=== PATIENT | male | born 1950 | race Asian ===

== ENCOUNTER 2017-12-21 22:09 | Inpatient (IN) | payer MEDICARE, OTHER ==
[2017-12-21] MEDS: SODIUM CHLORIDE 0.9% 1L BAG IV* (22:41)
[2017-12-21 22:50] LABS: ABNORMAL IP MESSAGE 1; HEMATOCRIT 18.3 % (42.0-52.0); MEAN CORPUSCULAR HEMOGLOBIN 30.8 pg (29.0-33.0); MEAN PLATELET VOLUME 11.5 fl (7.4-10.4); POSITIVE DIFF @See below; RED BLOOD COUNT 2.08 10^6/ul (4.70-6.10); RED CELL DISTRIBUTION WIDTH 16.1 % (11.5-14.5)
[2017-12-21 22:55] LABS: HEMOGLOBIN 6.4 g/dl (14.0-18.0); PLATELET COUNT 17 10^3/UL (140-415)
[2017-12-21 22:56] LABS: ADD MAN DIFF? YES; ALANINE AMINOTRANSFERASE 27 IU/L (13-69); ALBUMIN/GLOBULIN RATIO 1.03; ALKALINE PHOSPHATASE 70 IU/L (42-121); ANION GAP 15 (8-16); ASPARTATE AMINO TRANSFERASE 31 IU/L (15-46); BILIRUBIN,INDIRECT 0.7 mg/dl (0-1.1); BILIRUBIN,TOTAL 0.7 mg/dl (0.2-1.3); BLOOD UREA NITROGEN 20 mg/dl (7-20); CALCIUM 7.9 mg/dl (8.4-10.2); CARBON DIOXIDE 29 mmol/L (21-31); CHLORIDE 88 mmol/L (97-110); CREATININE 0.72 mg/dl (0.61-1.24); GLUCOSE 76 mg/dl (70-220); PATH REVIEW? YES; POTASSIUM 3.8 mmol/L (3.5-5.1); SODIUM 128 mmol/L (135-144); TOTAL PROTEIN 5.9 g/dl (6.1-8.1)
[2017-12-21 23:12] LABS: TROPONIN-I < 0.012 ng/ml (0.00-0.12)
[2017-12-21 23:26] LABS: INR 1.03; PROTIME 13.6 Sec (11.9-14.9); PT RATIO 1.1
[2017-12-21 23:27] LABS: PARTIAL THROMBOPLASTIN TIME 37.8 Sec (25.0-35.0)
[2017-12-21 23:43] LABS: ANISOCYTOSIS 2+ (0-0); BAND NEUTROPHILS #M 0.2 10^3/ul (0.0-0.6); BAND NEUTROPHILS % (M) 11 % (0-4); LYMPHOCYTES % (M) 52 % (15-51); MICROCYTOSIS 2+ (0-0); MONOCYTE #M 0.1 10^3/ul (0.3-0.9); MONOCYTES % (M) 6 % (0-11); PLATELET ESTIMATE SIG DECREASED; POLYCHROMASIA 3+ (0-0); SEG NEUT #M 0.6 10^3/ul (1.6-7.5); SEGMENTED NEUTROPHILS (M) % 31 % (39-77); SMUDGE%M 22 % (0-0)
[2017-12-21 23:50] LABS: LACTIC ACID 2.8 mmol/L (0.5-2.0)
[2017-12-22] MEDS: CEFEPIME 2GM/50 ML (PMX) 50 ML IVPB (00:40)
[2017-12-22] MEDS: VANCOMYCIN 1 GM (PMX) 250 ML IVPB (03:03)
[2017-12-22] MEDS ORDERED: NACL 0.9% 3 ML SYG IV (03:30)
[2017-12-22] MEDS ORDERED: ONDANSETRON 4 MG INJ IV (03:30)
[2017-12-22] MEDS ORDERED: ACETAMINOPHEN 650 MG SUPP PR (03:30)
[2017-12-22 06:31] LABS: WHITE BLOOD COUNT 1.1 10^3/ul (4.8-10.8)
[2017-12-22 06:31] LABS: ABNORMAL IP MESSAGE 1; HEMATOCRIT 18.3 % (42.0-52.0); MEAN CORPUSCULAR HEMOGLOBIN 30.4 pg (29.0-33.0); MEAN CORPUSCULAR HGB CONC 35.5 g/dl (32.0-37.0); MEAN CORPUSCULAR VOLUME 85.5 fl (82.0-101.0); MEAN PLATELET VOLUME 10.4 fl (7.4-10.4); POSITIVE DIFF @See below; RED BLOOD COUNT 2.14 10^6/ul (4.70-6.10); RED CELL DISTRIBUTION WIDTH 15.9 % (11.5-14.5)
[2017-12-22 06:33] LABS: PLATELET COUNT 27 10^3/UL (140-415)
[2017-12-22 06:36] LABS: HEMOGLOBIN 6.5 g/dl (14.0-18.0)
[2017-12-22 06:37] LABS: ADD MAN DIFF? YES
[2017-12-22] MEDS: PANTOPRAZOLE 40 MG INJ IV (06:49)
[2017-12-22 07:05] LABS: LACTIC ACID 0.8 mmol/L (0.5-2.0)
[2017-12-22 07:10] LABS: ALANINE AMINOTRANSFERASE 30 IU/L (13-69); ALBUMIN 2.5 g/dl (3.3-4.9); ALBUMIN/GLOBULIN RATIO 0.86; ALKALINE PHOSPHATASE 59 IU/L (42-121); ANION GAP 11 (8-16); ASPARTATE AMINO TRANSFERASE 31 IU/L (15-46); BILIRUBIN,INDIRECT 1.7 mg/dl (0-1.1); BILIRUBIN,TOTAL 1.7 mg/dl (0.2-1.3); BLOOD UREA NITROGEN 20 mg/dl (7-20); CALCIUM 7.4 mg/dl (8.4-10.2); CARBON DIOXIDE 26 mmol/L (21-31); CHLORIDE 96 mmol/L (97-110); CREATININE 0.58 mg/dl (0.61-1.24); GLUCOSE 65 mg/dl (70-220); MAGNESIUM 1.7 mg/dl (1.7-2.5); POTASSIUM 4.1 mmol/L (3.5-5.1); SODIUM 129 mmol/L (135-144); TOTAL PROTEIN 5.4 g/dl (6.1-8.1)
[2017-12-22] MEDS ORDERED: VANCOMYCIN IV PER PHARMACY XX (08:30)
[2017-12-22 09:46] LABS: ANISOCYTOSIS 2+ (0-0); BAND NEUTROPHILS % (M) 3 % (0-4); GIANT THROMBO% (M) 4 % (0-0); LYMPHOCYTES #M 0.3 10^3/ul (0.8-2.9); LYMPHOCYTES % (M) 33 % (15-51); MICROCYTOSIS 2+ (0-0); MONOCYTES % (M) 4 % (0-11); PLATELET ESTIMATE SIG DECREASED; SEG NEUT #M 0.7 10^3/ul (1.6-7.5); SEGMENTED NEUTROPHILS (M) % 60 % (39-77); SMUDGE%M 13 % (0-0)
[2017-12-22] MEDS: PIPER-TAZO 3.375 GM IV (PMX) 100 ML IVPB ×3 (10:24→18:00)
[2017-12-22 11:09] LABS: IMMEDIATE SPIN CROSSMATCH 1 3
[2017-12-22] MEDS: HYDROmorphONE 0.5 MG/0.5 ML SYG IV ×2 (15:36→20:38)
[2017-12-22 15:56] LABS: URIC ACID 3.3 mg/dl (3.1-7.9)
[2017-12-22] MEDS ORDERED: VANCOMYCIN 500MG/NS (PMX) 100 ML IVPB (16:00)
[2017-12-22 16:12] LABS: OSMOLALITY 271 mOsm/kg (280-295)
[2017-12-22 16:14] LABS: FREE T4 (FREE THYROXINE) 0.27 ng/dl (0.78-2.44)
[2017-12-22] MEDS: VANCOMYCIN 750 MG in DEXTROSE 5% 150 ML IVPB (17:56)
[2017-12-23] MEDS: PIPER-TAZO 3.375 GM IV (PMX) 100 ML IVPB ×5 (00:08→23:39)
[2017-12-23] MEDS: HYDROmorphONE 0.5 MG/0.5 ML SYG IV ×6 (00:10→21:16)
[2017-12-23] MEDS: HYDROCODONE/APAP (10/325) TAB GTB ×2 (02:49→06:49)
[2017-12-23] MEDS ORDERED: VANCOMYCIN 750 MG in DEXTROSE 5% 150 ML IVPB (03:00)
[2017-12-23] MEDS: VANCOMYCIN 750 MG in DEXTROSE 5% 150 ML IVPB ×2 (03:49→16:48)
[2017-12-23] MEDS: PANTOPRAZOLE 40 MG INJ IV (06:42)
[2017-12-23 07:56] LABS: WHITE BLOOD COUNT 1.1 10^3/ul (4.8-10.8)
[2017-12-23 07:56] LABS: ABNORMAL IP MESSAGE 1; HEMATOCRIT 29.5 % (42.0-52.0); HEMOGLOBIN 10.4 g/dl (14.0-18.0); MEAN CORPUSCULAR HEMOGLOBIN 29.9 pg (29.0-33.0); MEAN CORPUSCULAR HGB CONC 35.3 g/dl (32.0-37.0); MEAN CORPUSCULAR VOLUME 84.8 fl (82.0-101.0); MEAN PLATELET VOLUME 9.3 fl (7.4-10.4); PLATELET COUNT 57 10^3/UL (140-415); POSITIVE DIFF @See below; RED BLOOD COUNT 3.48 10^6/ul (4.70-6.10); RED CELL DISTRIBUTION WIDTH 14.9 % (11.5-14.5)
[2017-12-23 08:00] LABS: ADD MAN DIFF? YES
[2017-12-23 08:16] LABS: ANION GAP 12 (8-16); BLOOD UREA NITROGEN 18 mg/dl (7-20); CALCIUM 7.9 mg/dl (8.4-10.2); CARBON DIOXIDE 28 mmol/L (21-31); CHLORIDE 97 mmol/L (97-110); CREATININE 0.63 mg/dl (0.61-1.24); GLUCOSE 82 mg/dl (70-220); POTASSIUM 3.5 mmol/L (3.5-5.1); SODIUM 133 mmol/L (135-144)
[2017-12-23] MEDS ORDERED: oxyCODONE (20 MG/ML PO SYG) GTB (11:00)
[2017-12-23 12:18] LABS: ADD UMIC NO; UR ASCORBIC ACID NEGATIVE (NEGATIVE); UR BILIRUBIN (Dip) NEGATIVE (NEGATIVE); UR BLOOD (Dip) NEGATIVE (NEGATIVE); UR CLARITY CLEAR (CLEAR); UR COLOR YELLOW (YELLOW); UR GLUCOSE (Dip) NEGATIVE (NEGATIVE); UR KETONES (Dip) 1+ mg/dL (NEGATIVE); UR LEUKOCYTE ESTERASE (Dip) NEGATIVE Leu/ul (NEGATIVE); UR NITRITE (Dip) NEGATIVE (NEGATIVE); UR SPECIFIC GRAVITY (Dip) 1.016 (1.003-1.030); UR TOTAL PROTEIN (Dip) NEGATIVE (NEGATIVE); UR UROBILINOGEN (Dip) NEGATIVE (NEGATIVE)
[2017-12-23] MEDS: oxyCODONE 5 MG TAB PO ×2 (12:18→19:01)
[2017-12-23 12:25] LABS: SODIUM,URINE RANDOM 73 mmol/L (30-90)
[2017-12-23 12:25] LABS: CREATININE,URINE RANDOM 51.79 mg/dl (20-370)
[2017-12-23 12:57] LABS: ANISOCYTOSIS 1+ (0-0); BAND NEUTROPHILS % (M) 9 % (0-4); BASOPHILS % (M) 1 % (0-2); BURR CELLS 2+ (0-0); EOSINOPHILS % (M) 1 % (0-7); ERYTHROBLAST% (NRBC) (M) 1 % (0-0); GIANT THROMBO% (M) 1 % (0-0); LYMPHOCYTES #M 0.3 10^3/ul (0.8-2.9); LYMPHOCYTES % (M) 31 % (15-51); MICROCYTOSIS 1+ (0-0); MONOCYTES % (M) 9 % (0-11); PLATELET ESTIMATE SIG DECREASED; POIKILOCYTOSIS 2+ (0-0); POLYCHROMASIA 1+ (0-0); REACTIVE LYMPHOCYTES% (M) 2 % (0-0); SEG NEUT #M 0.5 10^3/ul (1.6-7.5); SEGMENTED NEUTROPHILS (M) % 47 % (39-77); SMUDGE%M 38 % (0-0)
[2017-12-23 13:20] LABS: OSMOLALITY,URINE 463 mOsm/kg (250-1200)
[2017-12-23 16:23] LABS: VANCOMYCIN,TROUGH 14.6 ug/ml (10.0-20.0)
[2017-12-24] MEDS: HYDROmorphONE 0.5 MG/0.5 ML SYG IV ×4 (02:53→18:57)
[2017-12-24] MEDS: VANCOMYCIN 750 MG in DEXTROSE 5% 150 ML IVPB ×2 (04:37→17:00)
[2017-12-24] MEDS: oxyCODONE 5 MG TAB PO ×5 (04:56→22:53)
[2017-12-24] MEDS: PANTOPRAZOLE 40 MG INJ IV (06:30)
[2017-12-24] MEDS: PIPER-TAZO 3.375 GM IV (PMX) 100 ML IVPB ×3 (06:31→18:56)
[2017-12-24 08:18] LABS: ABNORMAL IP MESSAGE 1; HEMATOCRIT 26.4 % (42.0-52.0); HEMOGLOBIN 9.3 g/dl (14.0-18.0); MEAN CORPUSCULAR HGB CONC 35.2 g/dl (32.0-37.0); MEAN CORPUSCULAR VOLUME 85.2 fl (82.0-101.0); MEAN PLATELET VOLUME 9.9 fl (7.4-10.4); POSITIVE DIFF @See below; RED CELL DISTRIBUTION WIDTH 15.3 % (11.5-14.5)
[2017-12-24 08:18] LABS: WHITE BLOOD COUNT 1.4 10^3/ul (4.8-10.8)
[2017-12-24 08:21] LABS: ADD MAN DIFF? YES; PLATELET COUNT 27 10^3/UL (140-415)
[2017-12-24 08:43] LABS: ANION GAP 9 (8-16); BLOOD UREA NITROGEN 14 mg/dl (7-20); CALCIUM 7.6 mg/dl (8.4-10.2); CARBON DIOXIDE 28 mmol/L (21-31); CHLORIDE 99 mmol/L (97-110); GLUCOSE 91 mg/dl (70-220); POTASSIUM 3.8 mmol/L (3.5-5.1); SODIUM 132 mmol/L (135-144)
[2017-12-24 09:22] LABS: ANISOCYTOSIS 2+ (0-0); BAND NEUTROPHILS #M 0.1 10^3/ul (0.0-0.6); BAND NEUTROPHILS % (M) 10 % (0-4); BASOPHILS % (M) 1 % (0-2); ERYTHROBLAST% (NRBC) (M) 2 % (0-0); GIANT THROMBO% (M) 5 % (0-0); LYMPHOCYTES #M 0.4 10^3/ul (0.8-2.9); LYMPHOCYTES % (M) 34 % (15-51); MICROCYTOSIS 1+ (0-0); MONOCYTES % (M) 6 % (0-11); PLATELET ESTIMATE SIG DECREASED; POLYCHROMASIA 2+ (0-0); REACTIVE LYMPHOCYTES% (M) 2 % (0-0); SEG NEUT #M 0.6 10^3/ul (1.6-7.5); SEGMENTED NEUTROPHILS (M) % 46 % (39-77); SMUDGE%M 11 % (0-0)
[2017-12-24] MEDS: LEVOTHYROXINE 50 MCG TAB PO (09:30)
[2017-12-24 17:26] LABS: CREATININE, RANDOM URINE 61 mg/dL (20-370); MICROALBUMIN <0.2 mg/dL; MICROALBUMIN/CREATININE RATIO NOTE (<30)
[2017-12-24 17:51] LABS: TYPE AND SCREEN 1
[2017-12-24] MEDS: SOD CHLORIDE 0.9% 250 ML IV* (18:15)
[2017-12-25] MEDS: PIPER-TAZO 3.375 GM IV (PMX) 100 ML IVPB ×4 (00:08→18:38)
[2017-12-25] MEDS: HYDROmorphONE 0.5 MG/0.5 ML SYG IV ×3 (02:52→16:09)
[2017-12-25] MEDS: VANCOMYCIN 750 MG in DEXTROSE 5% 150 ML IVPB ×2 (04:30→16:17)
[2017-12-25] MEDS: PANTOPRAZOLE 40 MG INJ IV (05:32)
[2017-12-25] MEDS: LEVOTHYROXINE 50 MCG TAB PO (05:32)
[2017-12-25] MEDS: oxyCODONE 5 MG TAB PO ×4 (06:47→23:28)
[2017-12-25 08:08] LABS: ABNORMAL IP MESSAGE 1; HEMATOCRIT 29.5 % (42.0-52.0); HEMOGLOBIN 10.2 g/dl (14.0-18.0); MEAN CORPUSCULAR HEMOGLOBIN 29.8 pg (29.0-33.0); MEAN CORPUSCULAR HGB CONC 34.6 g/dl (32.0-37.0); MEAN CORPUSCULAR VOLUME 86.3 fl (82.0-101.0); MEAN PLATELET VOLUME 10.5 fl (7.4-10.4); POSITIVE DIFF @See below; RED BLOOD COUNT 3.42 10^6/ul (4.70-6.10); RED CELL DISTRIBUTION WIDTH 14.9 % (11.5-14.5)
[2017-12-25 08:08] LABS: WHITE BLOOD COUNT 1.2 10^3/ul (4.8-10.8)
[2017-12-25 08:11] LABS: ADD MAN DIFF? YES; PLATELET COUNT 43 10^3/UL (140-415)
[2017-12-25 08:28] LABS: ANION GAP 9 (8-16); BLOOD UREA NITROGEN 11 mg/dl (7-20); CARBON DIOXIDE 33 mmol/L (21-31); CHLORIDE 95 mmol/L (97-110); CREATININE 0.52 mg/dl (0.61-1.24); GLUCOSE 91 mg/dl (70-220); POTASSIUM 3.4 mmol/L (3.5-5.1); SODIUM 134 mmol/L (135-144)
[2017-12-25] MEDS: POTASSIUM CHLORIDE 20 MEQ POWDER FOR ORAL SOLN GTB (09:20)
[2017-12-25 10:24] LABS: ANISOCYTOSIS 1+ (0-0); BAND NEUTROPHILS % (M) 8 % (0-4); EOSINOPHILS % (M) 1 % (0-7); LYMPHOCYTES #M 0.4 10^3/ul (0.8-2.9); LYMPHOCYTES % (M) 39 % (15-51); MICROCYTOSIS 1+ (0-0); MONOCYTE #M 0.1 10^3/ul (0.3-0.9); MONOCYTES % (M) 10 % (0-11); PLATELET ESTIMATE SIG DECREASED; REACTIVE LYMPHOCYTES% (M) 2 % (0-0); SEG NEUT #M 0.5 10^3/ul (1.6-7.5); SEGMENTED NEUTROPHILS (M) % 40 % (39-77); SMUDGE%M 38 % (0-0)
[2017-12-25] MEDS: SOD CHLORIDE 0.9% 250 ML IV* (13:03)
[2017-12-25 22:27] LABS: ABNORMAL IP MESSAGE 1; HEMATOCRIT 22.2 % (42.0-52.0); HEMOGLOBIN 7.8 g/dl (14.0-18.0); MEAN CORPUSCULAR HEMOGLOBIN 30.7 pg (29.0-33.0); MEAN CORPUSCULAR HGB CONC 35.1 g/dl (32.0-37.0); MEAN CORPUSCULAR VOLUME 87.4 fl (82.0-101.0); MEAN PLATELET VOLUME 10.9 fl (7.4-10.4); POSITIVE DIFF @See below; RED BLOOD COUNT 2.54 10^6/ul (4.70-6.10); RED CELL DISTRIBUTION WIDTH 14.4 % (11.5-14.5)
[2017-12-25 22:27] LABS: WHITE BLOOD COUNT 2.7 10^3/ul (4.8-10.8)
[2017-12-25 22:33] LABS: ADD MAN DIFF? YES; PLATELET COUNT 29 10^3/UL (140-415)
[2017-12-25 22:44] LABS: INR 0.98; PROTIME 13.1 Sec (11.9-14.9)
[2017-12-25 23:06] LABS: ANISOCYTOSIS 1+ (0-0); BAND NEUTROPHILS #M 0.2 10^3/ul (0.0-0.6); BAND NEUTROPHILS % (M) 9 % (0-4); EOSINOPHILS % (M) 1 % (0-7); LYMPHOCYTES #M 1.7 10^3/ul (0.8-2.9); LYMPHOCYTES % (M) 63 % (15-51); MICROCYTOSIS 1+ (0-0); MONOCYTES % (M) 2 % (0-11); PLATELET ESTIMATE SIG DECREASED; SEG NEUT #M 0.7 10^3/ul (1.6-7.5); SEGMENTED NEUTROPHILS (M) % 25 % (39-77); SMUDGE%M 14 % (0-0)
[2017-12-26] MEDS ORDERED: PHENYLephrine 40 MG in DEXTROSE 5% 496 ML IV
[2017-12-26] MEDS: PIPER-TAZO 3.375 GM IV (PMX) 100 ML IVPB ×4 (00:08→18:26)
[2017-12-26] MEDS: NORepinephrine 8MG/250 ML (PMX 250 ML IV (01:43)
[2017-12-26 03:36] LABS: IMMEDIATE SPIN CROSSMATCH 1 4
[2017-12-26] MEDS: VANCOMYCIN 750 MG in DEXTROSE 5% 150 ML IVPB ×2 (03:46→17:06)
[2017-12-26 05:51] LABS: ABNORMAL IP MESSAGE 1; HEMOGLOBIN 8.3 g/dl (14.0-18.0); MEAN CORPUSCULAR HEMOGLOBIN 28.9 pg (29.0-33.0); MEAN CORPUSCULAR HGB CONC 34.6 g/dl (32.0-37.0); MEAN CORPUSCULAR VOLUME 83.6 fl (82.0-101.0); MEAN PLATELET VOLUME 10.6 fl (7.4-10.4); PLATELET COUNT 60 10^3/UL (140-415); POSITIVE DIFF @See below; RED BLOOD COUNT 2.87 10^6/ul (4.70-6.10); RED CELL DISTRIBUTION WIDTH 13.6 % (11.5-14.5)
[2017-12-26 05:51] LABS: WHITE BLOOD COUNT 1.8 10^3/ul (4.8-10.8)
[2017-12-26 06:13] LABS: ANION GAP 11 (8-16)
[2017-12-26 06:14] LABS: ADD MAN DIFF? YES
[2017-12-26 06:17] LABS: BLOOD UREA NITROGEN 15 mg/dl (7-20); CALCIUM 7.4 mg/dl (8.4-10.2); CARBON DIOXIDE 29 mmol/L (21-31); CHLORIDE 98 mmol/L (97-110); CREATININE 0.56 mg/dl (0.61-1.24); GLUCOSE 106 mg/dl (70-220); POTASSIUM 4.3 mmol/L (3.5-5.1); SODIUM 134 mmol/L (135-144)
[2017-12-26] MEDS: PANTOPRAZOLE 40 MG INJ IV (06:30)
[2017-12-26] MEDS: LEVOTHYROXINE 50 MCG TAB PO (06:31)
[2017-12-26 07:56] LABS: ANISOCYTOSIS 2+ (0-0); BAND NEUTROPHILS #M 0.3 10^3/ul (0.0-0.6); BAND NEUTROPHILS % (M) 18 % (0-4); GIANT THROMBO% (M) 3 % (0-0); LYMPHOCYTES #M 0.7 10^3/ul (0.8-2.9); LYMPHOCYTES % (M) 41 % (15-51); MICROCYTOSIS 2+ (0-0); MONOCYTES % (M) 2 % (0-11); PLATELET ESTIMATE SIG DECREASED; SEG NEUT #M 0.7 10^3/ul (1.6-7.5); SEGMENTED NEUTROPHILS (M) % 39 % (39-77); SMUDGE%M 9 % (0-0)
[2017-12-26] MEDS: oxyCODONE 5 MG TAB PO ×2 (13:25→20:12)
[2017-12-26 16:37] LABS: VANCOMYCIN,TROUGH 17.4 ug/ml (10.0-20.0)
[2017-12-26] MEDS: HYDROmorphONE 0.5 MG/0.5 ML SYG IV ×2 (17:14→22:18)
[2017-12-27] MEDS: PIPER-TAZO 3.375 GM IV (PMX) 100 ML IVPB ×4 (00:19→17:44)
[2017-12-27] MEDS: oxyCODONE 5 MG TAB PO ×4 (00:19→22:51)
[2017-12-27] MEDS: HYDROmorphONE 0.5 MG/0.5 ML SYG IV ×5 (02:42→18:52)
[2017-12-27] MEDS: VANCOMYCIN 500MG/NS (PMX) 100 ML IVPB ×2 (04:27→16:10)
[2017-12-27 05:00] LABS: WHITE BLOOD COUNT 1.3 10^3/ul (4.8-10.8)
[2017-12-27 05:00] LABS: ABNORMAL IP MESSAGE 1; HEMATOCRIT 21.4 % (42.0-52.0); HEMOGLOBIN 7.5 g/dl (14.0-18.0); MEAN CORPUSCULAR HEMOGLOBIN 29.5 pg (29.0-33.0); MEAN CORPUSCULAR VOLUME 84.3 fl (82.0-101.0); MEAN PLATELET VOLUME 10.8 fl (7.4-10.4); POSITIVE DIFF @See below; RED BLOOD COUNT 2.54 10^6/ul (4.70-6.10); RED CELL DISTRIBUTION WIDTH 14.4 % (11.5-14.5)
[2017-12-27 05:20] LABS: PHOSPHORUS 2.9 mg/dl (2.5-4.9)
[2017-12-27 05:20] LABS: ANION GAP 9 (8-16); BLOOD UREA NITROGEN 12 mg/dl (7-20); CALCIUM 7.6 mg/dl (8.4-10.2); CARBON DIOXIDE 28 mmol/L (21-31); CHLORIDE 101 mmol/L (97-110); CREATININE 0.57 mg/dl (0.61-1.24); GLUCOSE 91 mg/dl (70-220); MAGNESIUM 1.7 mg/dl (1.7-2.5); POTASSIUM 3.9 mmol/L (3.5-5.1); SODIUM 134 mmol/L (135-144)
[2017-12-27 05:32] LABS: PLATELET COUNT 40 10^3/UL (140-415)
[2017-12-27 05:33] LABS: ADD MAN DIFF? YES
[2017-12-27] MEDS: MAGNESIUM SULFATE 1 GM/D5W 100 ML IVPB (06:25)
[2017-12-27] MEDS: LEVOTHYROXINE 50 MCG TAB PO (06:25)
[2017-12-27] MEDS: PANTOPRAZOLE 40 MG INJ IV (06:25)
[2017-12-27 09:26] LABS: ANISOCYTOSIS 1+ (0-0); BAND NEUTROPHILS #M 0.1 10^3/ul (0.0-0.6); BAND NEUTROPHILS % (M) 15 % (0-4); BURR CELLS 1+ (0-0); ERYTHROBLAST% (NRBC) (M) 2 % (0-0); GIANT THROMBO% (M) 1 % (0-0); LYMPHOCYTES #M 0.5 10^3/ul (0.8-2.9); LYMPHOCYTES % (M) 40 % (15-51); MICROCYTOSIS 1+ (0-0); MONOCYTES % (M) 2 % (0-11); PLATELET ESTIMATE SIG DECREASED; POIKILOCYTOSIS 1+ (0-0); POLYCHROMASIA 1+ (0-0); SEG NEUT #M 0.6 10^3/ul (1.6-7.5); SEGMENTED NEUTROPHILS (M) % 43 % (39-77); SMUDGE%M 10 % (0-0)
[2017-12-28] MEDS: PIPER-TAZO 3.375 GM IV (PMX) 100 ML IVPB ×4 (00:24→18:31)
[2017-12-28] MEDS: HYDROmorphONE 0.5 MG/0.5 ML SYG IV ×5 (02:43→18:56)
[2017-12-28] MEDS: PANTOPRAZOLE 40 MG INJ IV (05:22)
[2017-12-28] MEDS: LEVOTHYROXINE 50 MCG TAB PO (05:23)
[2017-12-28] MEDS: oxyCODONE 5 MG TAB PO ×2 (05:32→22:24)
[2017-12-28] MEDS: VANCOMYCIN 500MG/NS (PMX) 100 ML IVPB ×2 (06:45→16:32)
[2017-12-28 08:31] LABS: WHITE BLOOD COUNT 1.2 10^3/ul (4.8-10.8)
[2017-12-28 08:31] LABS: ABNORMAL IP MESSAGE 1; HEMATOCRIT 19.6 % (42.0-52.0); MEAN CORPUSCULAR HEMOGLOBIN 28.9 pg (29.0-33.0); MEAN CORPUSCULAR HGB CONC 34.7 g/dl (32.0-37.0); MEAN CORPUSCULAR VOLUME 83.4 fl (82.0-101.0); POSITIVE DIFF @See below; RED BLOOD COUNT 2.35 10^6/ul (4.70-6.10); RED CELL DISTRIBUTION WIDTH 13.7 % (11.5-14.5)
[2017-12-28 08:37] LABS: ADD MAN DIFF? YES; HEMOGLOBIN 6.8 g/dl (14.0-18.0); PLATELET COUNT 22 10^3/UL (140-415)
[2017-12-28 08:52] LABS: ANION GAP 9 (8-16); BLOOD UREA NITROGEN 12 mg/dl (7-20); CALCIUM 7.8 mg/dl (8.4-10.2); CARBON DIOXIDE 28 mmol/L (21-31); CHLORIDE 101 mmol/L (97-110); CREATININE 0.54 mg/dl (0.61-1.24); GLUCOSE 88 mg/dl (70-220); MAGNESIUM 1.9 mg/dl (1.7-2.5); PHOSPHORUS 2.9 mg/dl (2.5-4.9); POTASSIUM 3.8 mmol/L (3.5-5.1); SODIUM 134 mmol/L (135-144)
[2017-12-28 09:10] LABS: ANISOCYTOSIS 2+ (0-0); BAND NEUTROPHILS % (M) 8 % (0-4); LYMPHOCYTES #M 0.5 10^3/ul (0.8-2.9); LYMPHOCYTES % (M) 44 % (15-51); METAMYELOCYTES %M 1 % (0-0); MICROCYTOSIS 2+ (0-0); MONOCYTES % (M) 4 % (0-11); PLATELET ESTIMATE SIG DECREASED; POLYCHROMASIA 1+ (0-0); SEG NEUT #M 0.5 10^3/ul (1.6-7.5); SEGMENTED NEUTROPHILS (M) % 43 % (39-77); SMUDGE%M 2 % (0-0)
[2017-12-28 13:06] LABS: TYPE AND SCREEN 1
[2017-12-28] MEDS: SOD CHLORIDE 0.9% 250 ML IV* (13:15)
[2017-12-28 15:46] LABS: VANCOMYCIN,TROUGH 14.7 ug/ml (10.0-20.0)
[2017-12-28 21:58] LABS: IMMEDIATE SPIN CROSSMATCH 1 2
[2017-12-29] MEDS: PIPER-TAZO 3.375 GM IV (PMX) 100 ML IVPB ×2 (00:38→05:38)
[2017-12-29] MEDS: HYDROmorphONE 0.5 MG/0.5 ML SYG IV ×4 (00:57→19:28)
[2017-12-29] MEDS: oxyCODONE 5 MG TAB PO ×3 (03:00→23:43)
[2017-12-29] MEDS: VANCOMYCIN 500MG/NS (PMX) 100 ML IVPB (04:17)
[2017-12-29] MEDS: PANTOPRAZOLE 40 MG INJ IV (05:38)
[2017-12-29] MEDS: LEVOTHYROXINE 50 MCG TAB PO (05:39)
[2017-12-29 08:21] LABS: ANION GAP 11 (8-16); BLOOD UREA NITROGEN 13 mg/dl (7-20); CALCIUM 7.8 mg/dl (8.4-10.2); CARBON DIOXIDE 28 mmol/L (21-31); CHLORIDE 100 mmol/L (97-110); CREATININE 0.55 mg/dl (0.61-1.24); GLUCOSE 79 mg/dl (70-220); MAGNESIUM 1.9 mg/dl (1.7-2.5); PHOSPHORUS 3.1 mg/dl (2.5-4.9); SODIUM 135 mmol/L (135-144)
[2017-12-29 10:30] LABS: ABNORMAL IP MESSAGE 1; HEMATOCRIT 27.1 % (42.0-52.0); HEMOGLOBIN 9.5 g/dl (14.0-18.0); MEAN CORPUSCULAR HEMOGLOBIN 29.7 pg (29.0-33.0); MEAN CORPUSCULAR HGB CONC 35.1 g/dl (32.0-37.0); MEAN CORPUSCULAR VOLUME 84.7 fl (82.0-101.0); MEAN PLATELET VOLUME 10.5 fl (7.4-10.4); PLATELET COUNT 74 10^3/UL (140-415); POSITIVE DIFF @See below; RED CELL DISTRIBUTION WIDTH 13.8 % (11.5-14.5)
[2017-12-29 10:30] LABS: WHITE BLOOD COUNT 1.3 10^3/ul (4.8-10.8)
[2017-12-29 10:32] LABS: ADD MAN DIFF? YES
[2017-12-29 11:25] LABS: ANISOCYTOSIS 1+ (0-0); BAND NEUTROPHILS #M 0.1 10^3/ul (0.0-0.6); BAND NEUTROPHILS % (M) 15 % (0-4); GIANT THROMBO% (M) 4 % (0-0); LYMPHOCYTES #M 0.5 10^3/ul (0.8-2.9); LYMPHOCYTES % (M) 46 % (15-51); MICROCYTOSIS 1+ (0-0); MONOCYTES % (M) 2 % (0-11); PLATELET ESTIMATE DECREASED; SEG NEUT #M 0.5 10^3/ul (1.6-7.5); SEGMENTED NEUTROPHILS (M) % 37 % (39-77); SMUDGE%M 23 % (0-0)
[2017-12-30] MEDS: HYDROmorphONE 0.5 MG/0.5 ML SYG IV ×2 (03:03→08:56)
[2017-12-30] MEDS: LEVOTHYROXINE 50 MCG TAB PO (05:51)
[2017-12-30] MEDS: oxyCODONE 5 MG TAB PO ×2 (05:52→12:34)
[2017-12-30 12:22] LABS: ADD MAN DIFF? NO
[2017-12-30 12:25] LABS: WHITE BLOOD COUNT 1.4 10^3/ul (4.8-10.8)
[2017-12-30 12:25] LABS: ABNORMAL IP MESSAGE 1; EOSINOPHILS % 0.7 % (0.0-7.0); HEMATOCRIT 29.6 % (42.0-52.0); HEMOGLOBIN 10.2 g/dl (14.0-18.0); LYMPHOCYTES # 0.5 10^3/ul (0.8-2.9); MEAN CORPUSCULAR HEMOGLOBIN 29.3 pg (29.0-33.0); MEAN CORPUSCULAR HGB CONC 34.5 g/dl (32.0-37.0); MEAN CORPUSCULAR VOLUME 85.1 fl (82.0-101.0); MONOCYTE # 0.2 10^3/ul (0.3-0.9); MONOCYTES % 10.9 % (0.0-11.0); NEUTROPHIL # 0.7 10^3/ul (1.6-7.5); NEUTROPHILS % 51.4 % (39.0-77.0); POSITIVE DIFF @See below; RED BLOOD COUNT 3.48 10^6/ul (4.70-6.10); RED CELL DISTRIBUTION WIDTH 13.2 % (11.5-14.5)
[2017-12-30 12:27] LABS: PLATELET COUNT 51 10^3/UL (140-415)
== END 2017-12-30 14:56 | disposition home health service (06) | DRG 147 ==
LOC: ICU 12-25 21:33 → TEL 12-27 18:12 → E/R 22:09 → ICU 12-26 17:52 → TEL 12-22 02:28
PROC: 30233R1 Transfusion of Nonautologous Platelets into Peripheral Vein, Percutaneous Approach (ICD-10-PCS; principal; 2017-12-22)
PROC: 30233N1 Transfusion of Nonautologous Red Blood Cells into Peripheral Vein, Percutaneous Approach (ICD-10-PCS; 2017-12-22)
PROC: 0BJ18ZZ Inspection of Trachea, Via Natural or Artificial Opening Endoscopic (ICD-10-PCS; 2017-12-25)
PROC: 0CJY8ZZ Inspection of Mouth and Throat, Via Natural or Artificial Opening Endoscopic (ICD-10-PCS; 2017-12-25)
PROC: 06HN33Z Insertion of Infusion Device into Left Femoral Vein, Percutaneous Approach (ICD-10-PCS; 2017-12-27)
DX: C02.9 Malignant neoplasm of tongue, unspecified (principal); D62 Acute posthemorrhagic anemia; E87.2 Acidosis; D61.818 Other pancytopenia; E22.2 Syndrome of inappropriate secretion of antidiuretic hormone; D46.C Myelodysplastic syndrome with isolated del(5q) chromosomal abnormality; J98.11 Atelectasis; J96.10 Chronic respiratory failure, unspecified whether with hypoxia or hypercapnia; C32.1 Malignant neoplasm of supraglottis; C10.9 Malignant neoplasm of oropharynx, unspecified; D63.0 Anemia in neoplastic disease; E03.9 Hypothyroidism, unspecified; G62.9 Polyneuropathy, unspecified; I95.9 Hypotension, unspecified; J61 Pneumoconiosis due to asbestos and other mineral fibers; R13.10 Dysphagia, unspecified; Z66 Do not resuscitate; Z93.0 Tracheostomy status; Z93.1 Gastrostomy status; Z87.891 Personal history of nicotine dependence; Z92.3 Personal history of irradiation
CPT/HCPCS: 36415; 36430; 71045; 80048; 80053; 80202; 81003; 82043; 82533; 82962; 83036; 83605; 83735; 83930; 83935; 84100; 84155; 84300; 84439; 84443; 84484; 84560; 85025; 85610; 85730; 86644; 86850; 86900; 86901; 86920; 86945; 87040; 87081; 87086; 93005; 96374; 96375; 97162; 99291-25